=== PATIENT | female | born 1965 | race Caucasian/White ===

== ENCOUNTER 2017-09-18 17:33 | Emergency (ER) | payer MEDICAID ==
[2017-09-18] MEDS ORDERED: HUMULIN R 100 UNIT/ML VIAL SC ONE (17:34)
[2017-09-18] MEDS ORDERED: ASPIRIN 325 MG TABLET PO ONE (17:50)
[2017-09-18 17:58] LABS: BASO % 0.6 % (0-6); EOS % 0.2 % (0-6); HEMATOCRIT 31.6 % (35.0-47.0); HEMOGLOBIN 10.5 gm/dl (11.6-16.0); MEAN CORPUSCULAR HEMOGLOBIN 27.9 pg (27-33); MEAN CORPUSCULAR HGB CONC 33.2 g/dl (32-36); MEAN PLATELET VOLUME 10.5 fl (7.4-10.4); MONO % 4.2 % (0-9); PLATELET COUNT 289 K/uL (130-400); RED BLOOD COUNT 3.76 M/uL (3.80-5.40); RED CELL DISTRIBUTION WIDTH 12.6 % (11.5-14.5); WHITE BLOOD COUNT W/O DIFF 8.5 K/uL (4.2-12.2)
--- NOTE | 2017-09-18 17:58 | Emergency Department Record ---
History of Present Illness - General Chief Complaint: Chest Pain Stated Complaint: CHEST PAIN Time Seen by Provider: 09/18/17 17:38 Source: Patient Mode of Arrival: Ambulatory Limitations: No limitations - History of Present Illness Initial Comments: The patient is here due to intermittent CP for the last 4-5 days. She describes the pain as a tightness retrosternally that is nonradiating. The onset is with exertion and relieved with rest. The symptoms last 15-20 minutes at a time. She also has mild SOB but no sweating with the discomfort. 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 She has had no chest discomfort since the CABG until 4-5 days ago. Additionally she has been weak and fatigued for the last week also and has stumbled while walking slightly more than normal. MD Complaint: Chest pain Onset/Timin -: Days(s) Onset: During exertion Pain Location: Substernal Pain Radiation: None Severity: Mild Quality: Tightness Consistency: Intermittent Improves With: Nothing Worsens With: Nothing Treatments Prior to Arrival: None - Related Data Allergies Allergy/AdvReac Type Severity Reaction Status Date / Time No Known Drug Allergies Allergy Verified 09/18/17 17:41 Travel Screening - Travel/Exposure Within Last 30 Days Have you traveled within the last 30 days?: No Review of Systems Constitutional: Denies: Chills, Fever Eyes: Denies: Eye discharge ENT: Denies: Congestion Respiratory: Reports: Dyspnea. Denies: Cough Cardiovascular: Reports: Chest pain. Denies: Arrhythmia Endocrine: Denies: Fatigue Gastrointestinal: Denies: Abdominal pain Genitourinary: Denies: Dysuria Musculoskeletal: Denies: Arthralgia Past Medical History - SOCIAL HISTORY Smoking Status: Former smoker Alcohol Use: None Drug Use: None - RESPIRATORY Hx Respiratory Disorders: No - CARDIOVASCULAR Hx Cardio Disorders: Yes Hx Heart Attack: Yes (11/2014) Hx Hypertension: Yes Comment:: high cholesterol - NEURO Hx Neuro Disorders: No - GI Hx GI Disorders: No - Hx Genitourinary Disorders: Yes Hx UTI: Yes Comment:: born with one kidney - ENDOCRINE Hx Endocrine Disorders: Yes Hx Diabetes: Yes (type 1) Hx Thyroid Disease: Yes - MUSCULOSKELETAL Hx Musculoskeletal Disorders: No - PSYCH Hx Psych Problems: Yes Hx Anxiety: Yes Hx Depression: Yes - HEMATOLOGY/ONCOLOGY Hx Hematology/Oncology Disorders: No Family Medical History Any Significant Family History?: Yes Hx Alcohol Use: Father Hx Cancer: Father, Mother Hx Dementia: Father, Mother Hx Diabetes: Father, Mother Hx Heart Disease: Father, Mother Hx HTN: Father, Mother Hx Kidney Disease: Mother Hx Resp Disorders: Mother Hx Stroke: Mother Physical Exam - General General Appearance: Alert, Oriented x3, Cooperative, No acute distress - Head Head exam: Atraumatic, Normocephalic, Normal inspection - Eye Eye exam: Normal appearance, PERRL - ENT Throat exam: Normal inspection. negative: Tonsillar erythema, Tonsillar exudate - Neck Neck exam: Normal inspection, Full ROM. negative: Tenderness - Respiratory Respiratory exam: Normal lung sounds bilaterally. negative: Respiratory distress - Cardiovascular Cardiovascular Exam: Regular rate, Normal rhythm, Normal heart sounds - GI/Abdominal GI/Abdominal exam: Soft, Normal bowel sounds. negative: Tenderness - Extremities Extremities exam: Normal inspection, Full ROM, Normal capillary refill. negative: Tenderness - Back Back exam: Reports: Normal inspection - Neurological Neurological exam: Alert, Normal gait, Oriented X3. negative: Abnormal gait, Motor sensory deficit - Psychiatric Psychiatric exam: negative: Anxious - Skin Skin exam: negative: Rash Course Vital Signs 09/18/17 17:36 Temperature 97.8 F Pulse Rate 72 Respiratory 18 Rate Blood Pressure 152/88 Pulse Ox 97 - Reevaluation(s) Reevaluation #1: Due to the patient's uncontrolled glucose and acute on chronic renal failure I do feel the prudent course of action is to have the patient be transferred to [facility] and the patient does agree. I did discuss the patient with Dr. Man at [facility] and he does accept the patient in transfer. 09/18/17 18:29 09/18/17 18:35 Reevaluation #2: The patient is doing very well at this time. She denies any pain or discomfort. I did discuss the IVF with Dr. Man and the Insulin drip which he agreed with. 09/18/17 18:39 Medical Decision Making - Data Complexity MDM Data: Labs Ordered and/or Reviewed, X-Ray Ordered and/or Reviewed, EKG Ordered and/or Reviewed - Lab Data Result diagrams: 09/18/17 17:45 09/18/17 17:45 - EKG Data -: EKG Interpreted by Me EKG: No Acute Changes (NSR, Biphasic ST-T waves V1-3. Neg ischemic changes.) - Radiology Data Radiology results: Report reviewed (CXR: Neg) Disposition Disposition: Transfer Clinical Impression: Hyperglycemia without ketosis CRF (chronic renal failure) Qualifiers: Chronic kidney disease stage: stage 4 (severe) Qualified Code(s): N18.4 - Chronic kidney disease, stage 4 (severe) Chest pain Qualifiers: Chest pain type: unspecified Qualified Code(s): R07.9 - Chest pain, unspecified Disposition: Acute Care Hospital Transfer Transfer To: [facility] Reason For Transfer: Chest pain Accepting Physician: Donovan Time Discussed w/Accepting Physician: 18:42 Condition: (2) Stable Instructions: Chest Pain (ED) Forms: Patient Portal Access Time of Disposition: 18:42 Quality - Quality Measures Quality Measures: N/A - Blood Pressure Screening View Details: Yes Does Patient Have Any of the Following: No Blood Pressure Classification: Pre-Hypertensive BP Reading Systolic Measurement: 152 Diastolic Measurement: 88 Screening for High Blood Pressure: < Pre-Hypertensive BP, F/U Documented > [ [id number]] Pre-Hypertensive Follow-up Interventions: Referral to alternative/primary care provider.
[2017-09-18 18:10] LABS: INR 0.9
[2017-09-18 18:12] LABS: CREATININE 3.4 mg/dL (0.5-0.9)
[2017-09-18] MEDS ORDERED: 0.9 % SODIUM CHLORIDE 1000ML 1,000 ML IV ONE (18:17)
[2017-09-18 18:20] LABS: CKMB 3.2 ng/mL (<3.77)
[2017-09-18] MEDS ORDERED: HUMULIN R 100 UNIT/ML VIAL IV ONE (18:34)
[2017-09-18] MEDS ORDERED: INSULIN REGULAR, HUMAN 100 UNIT in 0.9 % SODIUM CHLORIDE 100ML 100 ML IV SCH ×2 (18:45)
--- NOTE | 2017-09-21 05:11 | RADIOLOGY REPORT ---
DATE: 09/18/2017 at 1814 hours. EXAM: CHEST, TWO VIEWS. HISTORY: Chest pain for the last four days with dizziness. Shortness of breath and weakness in legs. Tightness in chest. TECHNIQUE: Upright PA and lateral views of the chest are obtained. COMPARISON: Two-view, chest, radiographic examination dated 07/05/2017. FINDINGS: The heart is not enlarged and the pulmonary vasculature is nondilated. No new abnormal lung parenchymal opacity is seen; nor is there costophrenic angle blunting or pneumothorax. There are mild degenerative changes of the visualized spine and shoulder girdles. IMPRESSION: NO RADIOGRAPHIC EVIDENCE OF ACUTE CARDIOPULMONARY DISEASE. JOB NUMBER: [id number] [facility]
== END 2017-09-18 19:23 | disposition short-term general hospital (02) ==
LOC: ER 17:33
DX: E10.10 Type 1 diabetes mellitus with ketoacidosis without coma (principal); E10.22 Type 1 diabetes mellitus with diabetic chronic kidney disease; N18.4 Chronic kidney disease, stage 4 (severe); R07.89 Other chest pain; R06.02 Shortness of breath; R53.1 Weakness; I10 Essential (primary) hypertension; I25.2 Old myocardial infarction; Z79.4 Long term (current) use of insulin; Z87.891 Personal history of nicotine dependence; Z95.1 Presence of aortocoronary bypass graft
CPT/HCPCS: 99285 ×2; 96365; 96375; 96361; 82550; 85025; 85730; 85610; 82553; 80048; 82009; 84484; 71046; 93005; 93010; J1815; J7030